=== PATIENT | male | born 1995 | race Caucasian/White ===

== ENCOUNTER 2019-03-29 16:29 | Emergency (ER) | payer MEDICAID ==
[~2019-03-29] VITALS: Ht 182.9 cm; Wt 116.5 kg
[2019-03-29 16:32] VITALS: BP 131/77
[2019-03-29] MEDS ORDERED: IBUPROFEN 200 MG TABLET ONE (17:51)
[2019-03-29] MEDS ORDERED: IBUPROFEN 600 MG TABLET PO ONE (18:00)
== END 2019-03-29 17:58 | disposition home or self-care (01) ==
LOC: ED 17:20
DX: L25.9 Unspecified contact dermatitis, unspecified cause (principal); F17.200 Nicotine dependence, unspecified, uncomplicated
CPT/HCPCS: 99283